=== PATIENT | female | born 1950 | race African-American/Black ===

== ENCOUNTER → 2017-08-09 12:49 | Outpatient (CLI) | payer MEDICAID ==
[2010-12-02 13:27] VITALS: BMI 37.3
[~2017-08-09 12:49] MED LIST: BENZTROPINE ME0.5 MG PO; CRANBERRY 400 M1 TA1 PO; CYMBALTA30 MG PO; FLINTSTONE1 TAB.CHEW PO; FOLIC ACID1 MG PO; GUAIFENESI100 MG/5 M PO; HALDOL DECA100 MG/M1 IM; HALDOL5 MG PO; LATANOPROST OP; LEVAQUIN500 MG PO; MIRALAX17 GM PO; MUCUS RELIEF400 MG PO; OMEPRAZOLE20 M1 PO; POTASSIUM CHLO10 ME1 PO; PROMOD LIQUID P30 M1 PO; SYNTHROID112 MCG PO; TIMOPTIC XE 0.5%5 ML EACH EYE; ULTRAM50 MG PO; VITAMIN D31000 UNIT PO
== END | disposition home or self-care (01) ==
LOC: D.CT 12:49
DX: N93.9 Abnormal uterine and vaginal bleeding, unspecified (principal)

== ENCOUNTER 2017-09-14 08:16 | Emergency (ER) | payer MEDICAID ==
[~2017-09-14] VITALS: Ht 160 cm; Wt 86.4 kg
[2017-09-14 08:24] VITALS: Ht 160 cm; Wt 86.4 kg
[2017-09-14 09:18] LABS: BASOPHILS 0.2 % (0-2); EOSINOPHILS 2.6 % (0-7); HEMATOCRIT 30.1 % (36.0-48.0); IMMATURE GRANULOCYTES 0.2 % (0-5); MCHC 36.5 g/dL (31.0-37.0); MCV 65.7 fL (80.0-100.0); MEAN PLATELET VOLUME 9.4 fL (7.4-10.4); MONOCYTES 5.5 % (2-11); NEUTROPHILS 75.5 % (40-80); PLATELET COUNT 196 10x3/uL (130-400); RBC 4.58 10x6/uL (4.00-5.40); RDW 19.5 % (11.5-14.5); WBC 8.8 10x3/uL (4.8-10.8)
[2017-09-14 09:31] LABS: ALBUMIN 3.1 g/dL (3.4-5.0); ALKALINE PHOSPHATASE 106 U/L (46-116); ALT (SGPT) 13 U/L (10-68); AMYLASE - SERUM 32 U/L (25-115); BILIRUBIN - TOTAL 0.76 mg/dL (0.2-1.3); CALC OSMOLALITY 270 mosm/kg (275-300); CALCIUM 8.7 mg/dL (8.5-10.1); CARBON DIOXIDE 28.4 mmol/L (21.0-32.0); CHLORIDE - SERUM 102 mmol/L (98-107); CREATININE - SERUM 0.4 mg/dL (0.6-1.3); GLUCOSE 93 mg/dL (74-106); LIPASE 87 U/L (73-393); PROTEIN - SERUM 7.1 g/dL (6.4-8.2); SODIUM 136 mmol/L (136-145); UREA NITROGEN 9 mg/dL (7-18); eGFR NON AFRICAN AMERICAN > 90 mL/min (90-120)
[2017-09-14 10:25] LABS: APPEARANCE HAZY (CLEAR); BILIRUBIN NEGATIVE (NEGATIVE); COLOR YELLOW (YELLOW); GLUCOSE NEGATIVE (NEGATIVE); KETONE NEGATIVE (NEGATIVE); NITRITE POSITIVE (NEGATIVE); PROTEIN NEGATIVE (NEGATIVE); UROBILINOGEN NORMAL (NORMAL)
[2017-09-14 10:26] LABS: BACTERIA MANY /hpf (NONE SEEN); EPITHELIAL CELLS 0-5 /hpf (0-5); MUCUS <1+ /lpf (NONE SEEN)
[2017-09-14] MEDS ORDERED: LEVAQUIN500 MG PO (11:29)
[2017-09-14] MEDS ORDERED: HALDOL5 MG PO (11:55)
[2017-09-14] MEDS ORDERED: ULTRAM50 MG PO ×2 (11:55→12:11)
[2017-09-14] MEDS ORDERED: LATANOPROST OP (11:57)
[2017-09-14] MEDS ORDERED: MIRALAX17 GM PO (11:58)
[2017-09-14] MEDS ORDERED: FLINTSTONE1 TAB.CHEW PO (11:59)
[2017-09-14] MEDS ORDERED: POTASSIUM CHLO10 ME1 PO (12:01)
[2017-09-14] MEDS ORDERED: CRANBERRY 400 M1 TA1 PO (12:05)
[2017-09-14] MEDS ORDERED: BENZTROPINE ME0.5 MG PO (12:05)
[2017-09-14] MEDS ORDERED: CYMBALTA30 MG PO (12:06)
[2017-09-14] MEDS ORDERED: FOLIC ACID1 MG PO (12:06)
[2017-09-14] MEDS ORDERED: GUAIFENESI100 MG/5 M PO (12:07)
[2017-09-14] MEDS ORDERED: MUCUS RELIEF400 MG PO (12:08)
[2017-09-14] MEDS ORDERED: HALDOL DECA100 MG/M1 IM (12:08)
[2017-09-14] MEDS ORDERED: OMEPRAZOLE20 M1 PO (12:09)
[2017-09-14] MEDS ORDERED: PROMOD LIQUID P30 M1 PO (12:09)
[2017-09-14] MEDS ORDERED: SYNTHROID112 MCG PO (12:10)
[2017-09-14] MEDS ORDERED: TIMOPTIC XE 0.5%5 ML EACH EYE (12:11)
[2017-09-14] MEDS ORDERED: VITAMIN D31000 UNIT PO (12:12)
[2017-09-14 12:42] VITALS: BP 127/63
== END 2017-09-14 12:43 | disposition home or self-care (01) ==
LOC: D.ER 08:16
PROVIDERS: Family Medicine
DX: N39.0 Urinary tract infection, site not specified (principal); Z86.73 Personal history of transient ischemic attack (TIA), and cerebral infarction without residual deficits; E07.9 Disorder of thyroid, unspecified; D57.1 Sickle-cell disease without crisis